=== PATIENT | male | born 1975 | race Caucasian/White ===

== ENCOUNTER 2018-06-30 12:52 | Emergency (ER) | payer OTHER ==
--- OUTSIDE RECORDS SUMMARY | 2018-06-30 12:54 | XMS REPORT | Clinical Summary ---
:1975 Author Organization [facility] Address [address] [place] [address] Care Team Providers Name Role Phone Kal Hdz Primary Care Provider Allergies No Known Allergies Medications Medication Sig Dispensed Refills Start Date End Date Status STRATTERA 80 mg 0 09/10/2016 Active capsule amitriptyline 0 07/18/2016 Active (ELAVIL) 25 MG tablet testosterone 0 07/10/2016 Active cypionate (DEPOTESTOTERONE CYPIONATE) 200 mg/mL injection NASAL ALLERGY 55 mcg INT 2 SPRAYS IEN 3 08/17/2016 Active nasal inhaler BID. BD LUER-GLORIA SYRINGE U TO INJECT 1 06/18/2016 Active 3 mL 25 x 1 1/2 " TESTOSTERONE Q syringe WEEK UTD. BD LUER-GLORIA SYRINGE U TO DRAW 1 06/18/2016 Active 3 mL 18 x 1 1/2" TESTOSTERONE Q syringe WEEK UTD. LORAZepam (ATIVAN) 1 0 07/30/2016 Active MG tablet LORAZepam (ATIVAN) 0 08/08/2016 Active 0.5 MG tablet amoxicillin-pot TK 1 T PO Q 12 H 0 08/17/2016 Active clavulanate FOR 10 DAYS. (AUGMENTIN) 875-125 mg per tablet STRATTERA 60 mg 0 08/08/2016 Active capsule amLODIPine (NORVASC) Take 1 tablet (10 30 tablet 11 10/09/2016 10/09/2017 10 mg tablet mg total) by mouth daily. Active Problems No known active problems Family History Medical History Relation Name Comments Diabetes Father Hypertension Father Diabetes Mother Hypertension Mother Relation Name Status Comments Father Alive Mother Alive Social History Tobacco Use Types Packs/Day Years Used Date Never Smoker Alcohol Use Drinks/Week oz/Week Comments Yes Sex Assigned at Date Recorded Not on file Job Start Date Occupation Industry Not on file Not on file Not on file Travel History Travel Start Travel End No recent travel history available. Last Filed Vital Signs Not on file Plan of Treatment Date Type Specialty Care Team Description 07/29/2018 Office Visit Endocrinology Meredith Barr MD [address] [facility] [address] [place] [address] Health Maintenance Due Date Last Done Comments INFLUENZA VACCINE 10/16/2018 Results Not on fileafter 06/29/2017 Insurance Payer Benefit Plan / Group Subscriber ID Type Phone Address [employer] PPO OPEN CHOICE xxxxxxxxxx PPO (Home) [place] [address] Advance Directives Patient has advance care planning documents on file. For more information, please contact:Davie Bird[address] [place] [address]
[2018-06-30] MEDS ORDERED: NA CHLORIDE 0.9% 500 ML ONE (13:58)
[2018-06-30 14:20] LABS: Absolute Lymphocytes (CBC) 1.1 K/uL (0.7-4.9); Absolute Monocytes 0.9 K/uL (0.1-1.3); Absolute Neutrophil 8.4 K/uL (1.8-8.0); Basophils % 0.4 % (0-1.3); Eosinophils % 0.6 % (0-4.4); Lymphocytes % 10.5 % (15.3-44.8); MPV 9.4 fL (7.6-11.3); Monocytes % 8.3 % (3.3-12.3); RBC Red Blood Cell Count 5.43 M/uL (4.33-5.43)
[2018-06-30 14:48] LABS: ALT/SGPT 59 U/L (12-78); AST/SGOT 34 U/L (15-37); Albumin 4.2 g/dL (3.4-5.0); Alkaline Phosphatase 96 U/L (45-117); BUN Blood Urea Nitrogen 13 mg/dL (7-18); Bicarbonate 25 mmol/L (21-32); Bilirubin Direct 0.1 mg/dL (0-0.2); Bilirubin Total 0.6 mg/dL (0.2-1.0); Glucose Level 101 mg/dL (74-106); Lipase 181 U/L (73-393); Magnesium 2.2 mg/dL (1.8-2.4); Potassium 3.7 mmol/L (3.5-5.1); Protein, Total 7.4 g/dL (6.4-8.2); Sodium Level 142 mmol/L (136-145); Troponin (Emerg Dept Use Only) < 0.02 ng/mL (0.0-0.045)
--- NOTE | 2018-06-30 14:53 | RAD REPORT ---
EXAM DESCRIPTION: RAD - Chest Single View - 06/30/2018 2:40 pm CLINICAL HISTORY: DYSPNEA Chest pain. COMPARISON: Chest Pa And Lat (2 Views) dated 11/16/2015; CHEST SINGLE VIEW dated 01/13/2008; CHEST SI NGLE VIEW dated 01/03/2008; CHEST SINGLE VIEW dated 11/24/2007 FINDINGS: Portable technique limits examination quality. The lungs are grossly clear. The heart is normal in size. No displaced fractures. IMPRESSION: No acute intrathoracic process suspected.
--- NOTE | 2018-06-30 15:01 | EDPHYS ---
Physician Documentation [facility] Name: Jw Huynh Age: 42 yrs Sex: Male : 1975 Arrival Date: 06/30/2018 Time: 12:53 Bed 30 Private MD: out of town, doctor ED Physician Terrence Espinoza HPI: 06/30 13:44 This 42 yrs old Male presents to ER via Ambulatory with complaints of loren Dizziness, [place]ing[place]ing All Over. 13:44 The patient presents with dizziness, generalized weakness. Onset: The symptoms/episode loren began/occurred just prior to arrival. Context: occurred at work. Modifying factors: The symptoms are alleviated by nothing, the symptoms are aggravated by nothing. Associated signs and symptoms: Pertinent positives: numbness. Severity of symptoms: At their worst the symptoms were moderate in the emergency department the symptoms are unchanged. Patient's baseline: Neuro:. Historical: - Allergies: 13:16 No Known Allergies; ss - PMHx: 13:16 Hypertension; ss - PSHx: 13:16 Cholecystectomy; Vasectomy; knee repair; ss - Immunization history:: Adult Immunizations up to date. - Social history:: Smoking status: Patient uses tobacco products, chewing tobacco. - Ebola Screening: : Patient denies exposure to infectious person Patient denies travel to an Ebola-affected area in the 21 days before illness onset. - Family history:: not pertinent. ROS: 13:44 Constitutional: Negative for fever, chills, and weight loss, Eyes: Negative for injury, loren pain, redness, and discharge, ENT: Negative for injury, pain, and discharge, Neck: Negative for injury, pain, and swelling, Cardiovascular: Negative for chest pain, palpitations, and edema, Respiratory: Negative for shortness of breath, cough, wheezing, and pleuritic chest pain, Abdomen/GI: Negative for abdominal pain, nausea, vomiting, diarrhea, and constipation, Back: Negative for injury and pain, : Negative for injury, bleeding, discharge, and swelling, MS/Extremity: Negative for injury and deformity, Skin: Negative for injury, rash, and discoloration, Neuro: Negative for headache, weakness, numbness, tingling, and seizure, Allergy/Immunology: Negative for hives, rash, and allergies, Endocrine: Negative for neck swelling, polydipsia, polyuria, polyphagia, and marked weight changes, Hematologic/Lymphatic: Negative for swollen nodes, abnormal bleeding, and unusual bruising. 13:44 Psych: Positive for anxiety. Exam: 13:44 Constitutional: This is a well developed, well nourished patient who is awake, alert, loren and in no acute distress. Head/Face: Normocephalic, atraumatic. Eyes: Pupils equal round and reactive to light, extra-ocular motions intact. Lids and lashes normal. Conjunctiva and sclera are non-icteric and not injected. Cornea within normal limits. Periorbital areas with no swelling, redness, or edema. ENT: Nares patent. No nasal discharge, no septal abnormalities noted. Tympanic membranes are normal and external auditory canals are clear. Oropharynx with no redness, swelling, or masses, exudates, or evidence of obstruction, uvula midline. Mucous membranes moist. Neck: Trachea midline, no thyromegaly or masses palpated, and no cervical lymphadenopathy. Supple, full range of motion without nuchal rigidity, or vertebral point tenderness. No Meningismus. Chest/axilla: Normal chest wall appearance and motion. Nontender with no deformity. No lesions are appreciated. Cardiovascular: Regular rate and rhythm with a normal S1 and S2. No gallops, murmurs, or rubs. Normal PMI, no JVD. No pulse deficits. Respiratory: Lungs have equal breath sounds bilaterally, clear to auscultation and percussion. No rales, rhonchi or wheezes noted. No increased work of breathing, no retractions or nasal flaring. Abdomen/GI: Soft, non-tender, with normal bowel sounds. No distension or tympany. No guarding or rebound. No evidence of tenderness throughout. Back: No spinal tenderness. No costovertebral tenderness. Full range of motion. Male : Normal genitalia with no discharge or lesions. Skin: Warm, dry with normal turgor. Normal color with no rashes, no lesions, and no evidence of cellulitis. MS/ Extremity: Pulses equal, no cyanosis. Neurovascular intact. Full, normal range of motion. Neuro: Awake and alert, GCS 15, oriented to person, place, time, and situation. Cranial nerves II-XII grossly intact. Motor strength 5/5 in all extremities. Sensory grossly intact. Cerebellar exam normal. Normal gait. Psych: Awake, alert, with orientation to person, place and time. Behavior, mood, and affect are within normal limits. 13:44 Musculoskeletal/extremity: DVT Exam: No signs of deep vein thrombosis. no pain, no swelling, no tenderness, negative Homans' sign noted on exam, no appreciated bluish discoloration, no erythema, no increased warmth. Vital Signs: 13:14 BP 157 / 100; Pulse 86; Resp 24; Pulse Ox 99% on R/A; Weight 111.13 kg; Height 6 ft. 1 ss in. (185.42 cm); Pain 0/10; 13:30 BP 141 / 92; Pulse 63; Resp 17 S; Pulse Ox 97% on 2 lpm NC; ca1 14:07 BP 141 / 91; Pulse 83; Resp 18 S; Pulse Ox 99% on 2 lpm NC; ca1 15:00 BP 129 / 78; Pulse 68; Resp 17 S; Pulse Ox 96% on R/A; ca1 13:14 Body Mass Index 32.32 (111.13 kg, 185.42 cm) ss MDM: 13:29 Patient medically screened. [facility] 13:46 Data reviewed: vital signs, nurses notes, lab test result(s), EKG, radiologic studies, [facility] CT scan, plain films. 06/30 13:44 Order name: Basic Metabolic Panel; Complete Time: 14:59 [facility] 06/30 13:44 Order name: CBC with Diff; Complete Time: 14:59 [facility] 06/30 13:44 Order name: LFT's; Complete Time: 14:59 [facility] 06/30 13:44 Order name: Magnesium; Complete Time: 14:59 [facility] 06/30 13:44 Order name: Troponin (emerg Dept Use Only); Complete Time: 14:59 [facility] 06/30 13:44 Order name: Lipase; Complete Time: 14:59 [facility] 06/30 13:35 Order name: EKG; Complete Time: 13:[address] [facility] 06/30 13:35 Order name: EKG - Nurse/Tech; Complete Time: 14:[address] [facility] 06/30 13:44 Order name: XRAY Chest (1 view); Complete Time: 14:59 [facility] 06/30 13:44 Order name: Cardiac monitoring; Complete Time: 14:06 [facility] 06/30 13:44 Order name: IV Saline Lock; Complete Time: 14:06 [facility] 06/30 13:44 Order name: ABG [facility] 06/30 14:46 Order name: Urine Dipstick--Ancillary (enter results) 06/30 13:44 Order name: Labs collected and sent; Complete Time: 14:06 [facility] 06/30 13:44 Order name: O2 Per Protocol; Complete Time: 13:57 [facility] 06/30 13:44 Order name: O2 Sat Monitoring; Complete Time: 14:07 [facility] Administered Medications: 13:54 Drug: NS 0.9% 500 ml Route: IV; Rate: bolus; Site: right antecubital; ca1 15:22 Follow up: IV Status: Completed infusion ca1 Disposition: 06/30/18 15:00 Discharged to Home. Impression: Anxiety disorder, unspecified. - Condition is Stable. - Discharge Instructions: Panic Attacks, Panic Attacks, [id number], Generalized Anxiety Disorder. - Prescriptions for Benadryl 25 mg Oral Capsule - take 1 capsule by ORAL route every 6 hours As needed; 30 tablet. Xanax 0.5 mg Oral Tablet - take 1 tablet by ORAL route every 8 hours As needed; 20 tablet. - Medication Reconciliation Form, Thank You Letter, Antibiotic Education, Prescription Opioid Use form. - Follow up: Private Physician; When: 2 - 3 days; Reason: Recheck today's complaints, Continuance of care, Re-evaluation by your physician. - Problem is new. - Symptoms have improved. Signatures: Dispatcher [employer] EDMS Terrence Espinoza MD MD cha Smirch, Shelby, RN RN ss AcobJennifer RN RN ca1 Corrections: (The following items were deleted from the chart) 15:28 15:00 06/30/2018 15:00 Discharged to Home. Impression: Anxiety disorder, unspecified. ca1 Condition is Stable. Discharge Instructions: Generalized Anxiety Disorder, Panic Attacks, Panic Attacks, [id number]. Prescriptions for Benadryl 25 mg Oral Capsule - take 1 capsule by ORAL route every 6 hours As needed; 30 tablet, Xanax 0.5 mg Oral Tablet - take 1 tablet by ORAL route every 8 hours As needed; 20 tablet. and Forms are Medication Reconciliation Form, Thank You Letter, Antibiotic Education, Prescription Opioid Use. Follow up: Private Physician; When: 2 - 3 days; Reason: Recheck today's complaints, Continuance of care, Re-evaluation by your physician. Problem is new. Symptoms have improved. loren
--- NOTE | 2018-06-30 15:01 | ER ---
Nurse's Notes [facility] Name: Jw Huynh Age: 42 yrs Sex: Male : 1975 Arrival Date: 06/30/2018 Time: 12:53 Bed 30 Private MD: out of town, doctor Diagnosis: Anxiety disorder, unspecified Presentation: 06/30 13:14 Presenting complaint: Patient states: shortness of breath, shakiness, and tingling all ss over that began suddenly while at a meeting for work. Pt reports that has happened before and was seen in the ER while scheduled to follow up with an algology teacher. Transition of care: patient was not received from another setting of care. Onset of symptoms was June 30, 2018. Risk Assessment: Do you want to hurt yourself or someone else? Patient reports no desire to harm self or others. Initial Sepsis Screen: Does the patient meet any 2 criteria? No. Patient's initial sepsis screen is negative. Does the patient have a suspected source of infection? No. Patient's initial sepsis screen is negative. Care prior to arrival: None. 13:14 Method Of Arrival: Ambulatory ss 13:14 Acuity: PATRICIA 2 ss Historical: - Allergies: 13:16 No Known Allergies; ss - PMHx: 13:16 Hypertension; ss - PSHx: 13:16 Cholecystectomy; Vasectomy; knee repair; ss - Immunization history:: Adult Immunizations up to date. - Social history:: Smoking status: Patient uses tobacco products, chewing tobacco. - Ebola Screening: : Patient denies exposure to infectious person Patient denies travel to an Ebola-affected area in the 21 days before illness onset. - Family history:: not pertinent. Screenin:16 Abuse screen: Denies threats or abuse. Denies injuries from another. Nutritional ca1 screening: No deficits noted. Tuberculosis screening: No symptoms or risk factors identified. Fall Risk None identified. Assessment: 13:16 General: Appears in no apparent distress. uncomfortable, Behavior is calm, cooperative, ca1 appropriate for age. Pain: Denies pain. Neuro: Level of Consciousness is awake, alert, obeys commands, Oriented to person, place, time, situation, Reports dizziness, since 30 minutes ago. Cardiovascular: Heart tones S1 S2 present Capillary refill < 3 seconds Patient's skin is warm and dry. Respiratory: Airway is patent Respiratory effort is even, unlabored, Respiratory pattern is regular, symmetrical, Breath sounds are clear bilaterally. GI: Abdomen is flat, non-distended, Bowel sounds present X 4 quads. Abd is soft and non tender X 4 quads. GI: Reports nausea, since a while ago but not now. : No deficits noted. No signs and/or symptoms were reported regarding the genitourinary system. EENT: No deficits noted. No signs and/or symptoms were reported regarding the EENT system. Derm: Skin is intact, is healthy with good turgor, Skin is pink, warm \T\ dry. Musculoskeletal: Circulation, motion, and sensation intact. Capillary refill < 3 seconds. 13:30 Reassessment: pt complains of , O2 sats at 99%. Administered 02 via NC at 2LPM. ca1 14:07 Reassessment: Patient appears in no apparent distress at this time. Patient and/or ca1 family updated on plan of care and expected duration. Pain level reassessed. Patient is alert, oriented x 3, equal unlabored respirations, skin warm/dry/pink. Patient states feeling better. 15:00 Reassessment: Patient appears in no apparent distress at this time. Patient is alert, ca1 oriented x 3, equal unlabored respirations, skin warm/dry/pink. Vital Signs: 13:14 BP 157 / 100; Pulse 86; Resp 24; Pulse Ox 99% on R/A; Weight 111.13 kg; Height 6 ft. 1 ss in. (185.42 cm); Pain 0/10; 13:30 BP 141 / 92; Pulse 63; Resp 17 S; Pulse Ox 97% on 2 lpm NC; ca1 14:07 BP 141 / 91; Pulse 83; Resp 18 S; Pulse Ox 99% on 2 lpm NC; ca1 15:00 BP 129 / 78; Pulse 68; Resp 17 S; Pulse Ox 96% on R/A; ca1 13:14 Body Mass Index 32.32 (111.13 kg, 185.42 cm) ED Course: 12:53 Patient arrived in ED. dl4 12:54 out of town, doctor is Private Physician. dl4 13:06 Jennifer Alvarez, RN is Primary Nurse. ca1 13:14 Arm band placed on right wrist. ss 13:16 Triage completed. ss 13:16 Patient has correct armband on for positive identification. Placed in gown. Bed in low ca1 position. Call light in reach. Side rails up X 1. Pulse ox on. NIBP on. Warm blanket given. 13:28 Terrence Espinoza MD is Attending Physician. [facility] 13:54 Inserted saline lock: 20 gauge in right antecubital area, using aseptic technique. ca1 Blood collected. 14:08 EKG done, by build technician. reviewed by Terrence Espinoza MD. at1 14:41 XRAY Chest (1 view) In Process Unspecified. EDMS 15:27 No provider procedures requiring assistance completed. IV discontinued, intact, ca1 bleeding controlled, No redness/swelling at site. Pressure dressing applied. Administered Medications: 13:54 Drug: NS 0.9% 500 ml Route: IV; Rate: bolus; Site: right antecubital; ca1 15:22 Follow up: IV Status: Completed infusion ca1 Outcome: 15:00 Discharge ordered by . loren 15:27 Discharged to home ambulatory. ca1 15:27 Condition: stable 15:27 Discharge instructions given to patient, Instructed on discharge instructions, follow up and referral plans. medication usage, Demonstrated understanding of instructions, follow-up care, medications, Prescriptions given X 2. 15:28 Patient left the ED. ca1 Signatures: Dispatcher [employer] EDWY Terrence Espinoza MD MD cha Smirch, Shelby, RN RN Adriane Lowry, ruffling hemmer automatic EKG Tat1 Ranjith Ceballos dl4 Jennifer Alvarez, RN RN ca1 Corrections: (The following items were deleted from the chart) 13:17 13:14 Acuity: PATRICIA 3 ss 14:12 14:07 Reassessment: Patient appears in no apparent distress at this time. Patient ca1 and/or family updated on plan of care and expected duration. Pain level reassessed. Patient is alert, oriented x 3, equal unlabored respirations, skin warm/dry/pink. ca1
--- NOTE | 2018-06-30 16:24 | EKG ---
Test Date: 2018-06-30 Test Time: 13:55:34 Liquor Runner: SPENSER MEASUREMENT RESULTS: Intervals: Rate: 69 OH: 130 QRSD: 98 QT: 414 QTc: 443 [place]: P: 27 OH: 130 QRS: 33 T: 37 INTERPRETIVE STATEMENTS: Normal sinus rhythm with sinus arrhythmia Normal ECG Compared to ECG 01/13/2008 09:38:20 Sinus bradycardia no longer present Early repolarization no longer present Electronically Signed On 06-30-18 16:23:42 CDT by Bobby Castrejon
[2018-06-30 20:09] LABS: Urine Blood NEGATIVE (NEG); Urine Glucose NEGATIVE (NEG); Urine Protein NEGATIVE (NEG)
== END 2018-06-30 15:28 | disposition home or self-care (01) ==
LOC: ER 12:52
DX: F41.9 Anxiety disorder, unspecified (principal); F17.220 Nicotine dependence, chewing tobacco, uncomplicated
CPT/HCPCS: 36415; 71045; 80048; 80076; 81003; 83690; 83735; 84484; 85025; 93005; 96360; 99284